=== PATIENT | female | born 1985 | race Caucasian/White ===

== ENCOUNTER 2019-08-06 20:21 | Emergency (ER) | payer OTHER, SELFPAY ==
--- NOTE | ~2019-08-06 | CT_ITS ---
EXAMINATION: CT abdomen pelvis w con INDICATION: Abdominal pain and vomiting TECHNIQUE: Computed tomographic images of the abdomen and pelvis were obtained after the administrati on of 100 cc of Omnipaque 350 intravenous contrast. The dose-length product (DLP) was 1147.06 mGy-cm. Automated exposure control and iterative reconstruction technique were employed. COMPARISON: 11/14/2018 FINDINGS: The lung bases are clear. The heart size is normal. The liver is diffusely low in attenuati on when compared with the spleen, consistent with hepatic steatosis. The spleen, pancreas, and adrena l glands are normal. Stones are present in the nondistended gallbladder. The kidneys are unremarkable . No pathologically enlarged abdominal or pelvic lymph nodes are identified. No pathologically enlarg ed abdominal or pelvic lymph nodes are identified. There is no free intraperitoneal gas or evidence o f bowel obstruction. There is a small fat-containing umbilical hernia. IMPRESSION: 1. No CT correlate for the patient's symptoms. Reviewed, dictated and finalized at location A.
[2019-08-06 20:33] VITALS: BP 123/89; PULSE 81; RESP 18; TEMP 36.7; O2SAT 100
[2019-08-06 21:12] VITALS: BP 114/52; PULSE 58; RESP 18; O2SAT 100
[2019-08-06 21:15] LABS: Basophils Absolute Auto 0.1 K/mm3 (0.0-0.1); Basophils Percent Auto 0.5 % (0.2-1.2); Eosinophils Absolute Auto 0.1 K/mm3 (0-0.3); Eosinophils Percent Auto 0.9 % (0-4.4); Hematocrit 44.6 % (37.0-47.0); Immature Granulocyte Absolute 0.03 K/mm3 (0.00-0.031); Immature Granulocyte Percent A 0.3 % (0-0.5); Lymphocytes Absolute Auto 3.04 K/mm3 (0.9-3.2); Lymphocytes Percent Auto 28.8 % (18.3-44.2); Mean Corpuscular HGB Conc 33.6 g/dl (32-36); Mean Corpuscular Volume 86.3 fl (80-100); Monocytes Absolute Auto 0.7 K/mm3 (0.1-0.6); Monocytes Percent Auto 6.5 % (2.6-8.5); Neutrophils Absolute Auto 6.7 K/mm3 (1.3-6.7); Platelet Count Result 284 k/mm3 (150-375); Red Blood Count 5.17 M/mm3 (4.2-5.4); Red Cell Distribution Width 13.1 % (11.5-14.5); White Blood Count 10.6 K/mm3 (4.5-10.0)
[2019-08-06 21:27] LABS: Alanine Aminotransferase 86 U/L (4-35); Albumin Level 4.4 g/dL (3.5-5.1); Alkaline Phosphatase 101 U/L (38-126); Aspartate Amino Transferase 53 U/L (14-36); Bilirubin,Total 0.9 mg/dL (0.2-1.3); Blood Urea Nitrogen 9 mg/dL (7-17); Calcium 8.8 mg/dL (8.4-10.2); Carbon Dioxide 27 mmol/L (22-30); Chloride 102 mmol/L (98-107); Estimated CRCL calculation 123 ml/min; Estimated Glomerular Filt Rate > 60; Glucose 125 mg/dL (65-105); Lipase 70 U/L (23-300); Potassium 3.5 mmol/L (3.4-5.0); Sodium 138 mmol/L (137-145)
[2019-08-06 21:39] LABS: Add Urine Microscopic? YES; Appearance Urine Clear (Clear); Bacteria Urine Trace /hpf; Bilirubin Urine Negative (Negative); Blood Urine 2+ (Negative); Color Urine Yellow (Yellow); Glucose Urine UA Negative (Negative); Ketones Urine Negative (Negative); Leukocyte Esterase Ur Negative LEU/UL (Negative); Mucus Urine Rare /lpf; Nitrate Urine Negative (Negative); Protein Urine Negative (Negative); RBC Urine 0-2 /hpf (0-2); Squamous Epithelial Cell Urine Few /hpf (Few); WBC Urine 0-3 /hpf
--- NOTE | 2019-08-06 21:58 | ED.ABDPAIN ---
HPI - Abdominal Pain General Chief Complaint: Abdominal Pain Stated Complaint: n/v Time Seen by Provider: 08/06/19 21:52 History of Present Illness HPI narrative: Patient presents with 2 months of mid abdominal pain, and vomiting. She said the vomiting is intermittent, usually occurs after a meal. The pain has been fluctuating, from mild to severe, with a maximum of 10 out of 10 today. Now the pain is 8 out of 10. She points to her umbilicus. She has not had fever chills or sweats. She has had a tubal ligation, and denies risk of sexually transmitted disease. She does not smoke drink or do drugs. She works as a dining room server. She has not had any travel or camping recently. Related Data Allergies Allergy/AdvReac Type Severity Reaction Status Date / Time No Known Allergies Allergy Verified 08/06/19 20:34 Review of Systems Review of Systems: Narrative: CONSTITUTIONAL: Denies fever, chills, or sweats. EYES: Denies visual changes, redness, or discharge. ENT: Denies rhinorrhea, congestion, sore throat, or otalgia. CARDIOVASCULAR: Denies chest pain, palpitations, or edema. RESPIRATORY: Denies cough or dyspnea. GASTROINTESTINAL: She has abdominal pain, and nausea, vomiting, but not diarrhea. GENITOURINARY: Denies dysuria or hematuria. SKIN: Denies rash or itching. MUSCULOSKELETAL: Denies back pain, joint pain, or myalgia. NEUROLOGIC: Denies headache, numbness, or weakness. PSYCHIATRIC: Denies anxiety or depression. PMFSH Past Medical History Medical History (Updated 08/06/19 @ 22:40 by Amanda Christianson MD) Abdominal pain Surgical History Surgical History (Updated 08/06/19 @ 22:02 by Amanda Christianson MD) History of tubal ligation Social History Social History (Updated 08/06/19 @ 22:02 by Amanda Christianson MD) Smoking status: Never smoker Alcohol intake: never Substance use: never Exam Narrative: Exam Narrative: GENERAL: Well-appearing, well-nourished, and in no acute distress. HEAD: Normocephalic, atraumatic. EYES: PERRLA and EOMI. ENT: Nares clear, no rhinorrhea or epistaxis. Mucous membranes moist. Missing teeth. NECK: Supple. CHEST: Clear to auscultation. No respiratory distress. HEART: Regular rate and rhythm. No murmur heard. Normal peripheral pulses. ABDOMEN: Soft, nontender, nondistended, normal active bowel sounds. Stretch rene. EXTREMITIES: Normal range of motion. No edema. Bruise on the left lower leg. SKIN: Warm, dry, no rash. NEURO: No focal deficits. Alert and oriented x3. PSYCH: Normal mood and affect. Course Reevaluation(s) Reevaluation #1: Went in to talk to the patient about her CAT scan report. She has a small umbilical hernia with fat but that is not causing her pain. I suspect it will be irritable bowel syndrome, and I prescribed Bentyl. Recommend that she see a GI specialist for further evaluation, and a primary care physician. She agrees. I offered a work note. Date: 08/06/19 Time: 22:56 Vital Signs Vital signs: Vital Signs Temperature 98.0 F 08/06/19 20:33 Pulse Rate 81 08/06/19 20:33 Respiratory Rate 18 08/06/19 20:33 Blood Pressure 123/89 08/06/19 20:33 Pulse Oximetry 100 08/06/19 20:33 Temperature 98.0 F 08/06/19 20:33 Pulse Rate 67 08/06/19 22:27 Respiratory Rate 19 08/06/19 22:27 Blood Pressure 114/65 08/06/19 22:27 Pulse Oximetry 100 08/06/19 22:27 MDM - Abdominal Pain Medical Records Attestation: I reviewed the patient's medical records. Lab Data Attestation: I reviewed the patient's lab results. Result diagrams: 08/06/19 21:09 08/06/19 21:09 Labs: Lab Results 08/06/19 08/06/19 08/06/19 Range/Units 21:09 21:09 21:27 WBC 10.6 H (4.5-10.0) K/mm3 RBC 5.17 (4.2-5.4) M/mm3 Hgb 15.0 (12.0-15.0) g/dL Hct 44.6 (37.0-47.0) % MCV 86.3 (80-100) fl MCH 29.0 (26-34) pg MCHC 33.6 (32-36) g/dl RDW 13.1 (11.5-14.5) % Plt Count 284 (150-375) k/mm3 MPV 11.0
[2019-08-06] MEDS: SODIUM CHLORIDE 0.9% IV 1,000 ML 999 ML IV CONT (22:08)
[2019-08-06] MEDS: ONDANSETRON INJ 4 MG/2 ML VIAL IV PUSH (22:08)
[2019-08-06] MEDS: MORPHINE SULFATE 4 MG/ML INJ IV PUSH (22:08)
[2019-08-06 22:27] VITALS: BP 114/65; PULSE 67; RESP 19; O2SAT 100
[2019-08-06 23:08] VITALS: BP 115/71; PULSE 61; RESP 19; TEMP 37; O2SAT 100
== END 2019-08-06 23:09 | disposition home or self-care (01) ==
PROVIDERS: General Practice; Emergency Provider Emergency Medicine
DX: K42.9 Umbilical hernia without obstruction or gangrene (principal)
CPT/HCPCS: 36415; 74177; 80053; 81001; 81025; 83690; 85025; 96361; 96374; 96375; 99284; J2270; J2405; J7030; Q9967

== ENCOUNTER 2019-11-08 09:47 | Emergency (ER) | payer OTHER, SELFPAY ==
--- NOTE | 2019-11-08 09:55 | ED.GENADULT ---
HPI - General Adult General Chief complaint: Upper Respiratory Infection Stated complaint: Sore throat Time Seen by Provider: 11/08/19 10:04 Source: patient Mode of arrival: ambulatory Limitations: no limitations History of Present Illness HPI narrative: 34-year-old female patient presents to the [facility] with complaints of a sore throat for the past 3 days. Patient states about 3 days ago she did have an EGD done and was told that she might have a sore throat afterwards. Patient states that her throat has gotten increasingly worse over the past 3 days and noticed today that she had some white spots in the back of her throat and on her uvula. Patient denies any fevers, body aches or chills. Denies any ear pain, runny nose. Patient states she has had a slight cough. Patient states that she does smoke cigarettes. Patient denies any chest pain or shortness of breath. Related Data Allergies Allergy/AdvReac Type Severity Reaction Status Date / Time No Known Allergies Allergy Verified 11/08/19 09:51 Review of Systems Review of Systems: Narrative: CONSTITUTIONAL: Denies fever, chills, or sweats. EYES: Denies visual changes, redness, or discharge. ENT: Denies rhinorrhea, congestion, positive sore throat, denies otalgia. CARDIOVASCULAR: Denies chest pain, palpitations, or edema. RESPIRATORY: Positive mild nonproductive cough denies dyspnea. GASTROINTESTINAL: Denies abdominal pain, nausea, vomiting, or diarrhea. GENITOURINARY: Denies dysuria or hematuria. SKIN: Denies rash or itching. MUSCULOSKELETAL: Denies back pain, joint pain, or myalgia. NEUROLOGIC: Denies headache, numbness, or weakness. PSYCHIATRIC: Denies anxiety or depression. [facility] Past Medical History Medical History (Updated 11/08/19 @ 10:18 by MERVIN Lopez) Abdominal pain Chin's palsy Tubal ligation evaluation Surgical History Surgical History History of tubal ligation Family History Family History (Updated 11/08/19 @ 10:19 by MERVIN Lopez) Other Cancer Carcinoma of colon Social History Social History Smoking status: Never smoker Alcohol intake: never Substance use: never Comments At the time of my signature I agree with nursing past medical history, surgical, social, and family history. There is no relevant family history pertinent to the presenting complaint. Exam Narrative: Exam Narrative: GENERAL: Well-appearing, well-nourished, and in no acute distress. HEAD: Normocephalic, atraumatic. EYES: PERRLA and EOMI. ENT: Nares clear, no rhinorrhea or epistaxis. Mucous membranes moist. Posterior pharynx with erythema noted. The uvula does have some erythema and swelling noted with a white exudate noted. Bilateral TMs are clear no erythema or foreign bodies in the canal. NECK: Supple. No lymphadenopathy CHEST: Clear to auscultation. No respiratory distress. HEART: Regular rate and rhythm. No murmur heard. Normal peripheral pulses. ABDOMEN: Soft, nontender, nondistended, normal active bowel sounds. EXTREMITIES: Normal range of motion. No edema. SKIN: Warm, dry, no rash. NEURO: No focal deficits. Alert and oriented x3. Course Vital Signs Vital signs: Vital Signs Temperature 36.6 C 11/08/19 09:58 Pulse Rate 94 11/08/19 09:58 Respiratory Rate 18 11/08/19 09:58 Blood Pressure 125/72 11/08/19 09:58 Pulse Oximetry 99 11/08/19 09:58 Temperature 36.6 C 11/08/19 09:58 Pulse Rate 94 11/08/19 09:58 Respiratory Rate 18 11/08/19 09:58 Blood Pressure 125/72 11/08/19 09:58 Pulse Oximetry 99 11/08/19 09:58 Vital signs reviewed. Medical Decision Making Differential Diagnosis Differential Diagnosis: Differential diagnosis: Viral pharyngitis, pharyngitis, group A strep, infectious mononucleosis, gonococcal pharyngitis, exudative pharyngitis, oral candidiasis. Chronic allergies, postnasal
[2019-11-08 09:58] VITALS: BP 125/72; PULSE 94; RESP 18; TEMP 36.6; O2SAT 99
== END 2019-11-08 10:16 | disposition home or self-care (01) ==
PROVIDERS: Emergency Provider Nurse Practitioner Family; PCP Family Medicine
DX: K12.2 Cellulitis and abscess of mouth (principal); J02.9 Acute pharyngitis, unspecified; F17.210 Nicotine dependence, cigarettes, uncomplicated
CPT/HCPCS: 87081; 87880; 99213; G0463